=== PATIENT | male | born 1990 | race Caucasian/White ===

== ENCOUNTER 2016-05-24 01:10 | Emergency (ER) | payer OTHER ==
[~2016-05-24] VITALS: Ht 170.2 cm; Wt 127.3 kg
[2016-05-24] MEDS ORDERED: AZIT250T PO (01:40)
[2016-05-24] MEDS: ED- AZITHROMYCIN 250 MG (ZITHROMAX) 3 TABLETS/BTL PO ONE (01:43)
[2016-05-24 01:51] VITALS: BP 138/73
== END 2016-05-24 01:45 | disposition home or self-care (01) ==
LOC: ED 01:17
DX: J06.9 Acute upper respiratory infection, unspecified (principal)
CPT/HCPCS: 99282; 99283